=== PATIENT | female | born 1960 | race African-American/Black ===

== ENCOUNTER → 2017-10-24 | Outpatient (CLI) | payer MEDICARE ==
[2014-12-14 09:29] VITALS: BP 191/103
[~2017-10-24] MED LIST: AMLO5TAB7 PO; LOSA1TAB19 PO; POTA10TA31 PO
--- NOTE | 2017-10-25 09:56 | SLEEP ---
DATE OF STUDY: 10/24/2017 ATTENDING PHYSICIAN: Mackenzie Beavers MD. The patient is 57 years old who weighs 162 pounds with a BMI of 32. The patient's [place] score was 18 suggesting severe subjective hypersomnia. The patient underwent a split night study at [facility]. During the night study, the patient spent 461 minutes in bed and slept for 371 minutes with a sleep efficiency of 80%. Sleep latency was 33 minutes with a REM latency of 198 minutes. Overall, sleep architecture showed increased stage 1 sleep, normal stage 2 sleep, normal slow wave, and reduced REM sleep. During the initial diagnostic portion of the study, the patient slept for 167 minutes. During that time, there were 104 obstructive apneas, 212 mixed apneas, no central apneas and 13 hypopneas. The patient's apnea-hypopnea index was 119 per hour, supine index 117 per hour, and a REM index of 57 per hour. EKG monitoring revealed normal sinus rhythm. No sustained arrhythmias were observed. Average heart rate was 81 beats per minute. Nocturnal oximetry study revealed an average oxygen saturation of 96% with the lowest of 52%. 27% of time oxygen saturation remained between 80% and 89% and 3% of time between 70% and 79%. PLMs were not observed. The patient met the criteria for CPAP initiation due to severe obstructive sleep apnea. Pressure was started at 5 cm of water and titrated up to 18 cm of water. The patient's respiratory events persisted. As a result, the patient was switched to BiPAP starting at 25/18 and the pressure was increased up to 30/25. The patient's respiratory events were not eliminated and after sleeping for 28 minutes at this pressure, the patient's AHI was still 55 per hour from 26 apneas. Supine/ REM sleep seen. Optimum BiPAP pressure was not achieved. This is a significantly high BiPAP pressure and despite that, therapeutic improvement was not seen. IMPRESSION: 1. Severe sleep apnea-hypopnea syndrome at an apnea-hypopnea index of 119 per hour. 2. Nocturnal hypoxia secondary to obstructive sleep apnea, but resolved with BiPAP. 3. No clinically significant period limb movements. RECOMMENDATIONS: 1. Optimum CPAP/BiPAP pressure was not achieved on this split night study. I would recommend that the patient should be placed on an auto BiPAP at a maximum IPAP pressure of 30 and a minimum EPAP pressure of 20 with pressure support of 4. The patient should lose weight. It will help in future improvement in BiPAP pressure requirements. Avoiding [place] depressants would certainly help as well. 2. The patient needs to follow up in 4-6 weeks to assess compliance with BiPAP and to review the download data. 3. If patient's download data continues to show high AHI, then I would recommend the patient should return for a full night of BiPAP titration study 4. The patient used a small size full face mask. 5. Avoid [place] depressants. 6. Caution regarding driving until symptoms of sleep apnea resolve with the above recommendations. RIDGE ARENAS MD DR: BREE/gal JOB#: [id number] / [id number] MACKENZIE Esquivel MD MTDD
== END | disposition home or self-care (01) ==
LOC: RT 18:51
PROVIDERS: ATTEND Family Medicine
DX: G47.33 Obstructive sleep apnea (adult) (pediatric) (principal)
CPT/HCPCS: 95810